=== PATIENT | male | born 1970 | race Caucasian/White ===

== ENCOUNTER 2016-11-01 12:23 | Emergency (ER) | payer OTHER ==
[2016-11-01] MEDS ORDERED: LIDOCAINE VISCOUS 2% 15 ML CUP MUCOUS MEM STA (13:49)
[2016-11-01] MEDS ORDERED: ACETAMINOPHEN ORAL SUSP 160 MG/5 ML CUP PO STA (13:49)
--- NOTE | 2016-11-01 13:55 | ED ---
ENT HPI - General Chief complaint: ENT Stated complaint: Throat Problems Time Seen by Provider: 11/01/16 13:39 Source: patient, RN notes reviewed Mode of arrival: ambulatory Limitations: no limitations - History of Present Illness Initial comments: Patient is a 45-year-old male presents to the emergency room for evaluation of throat pain. Patient states the pain began about 2 days ago. Patient states pain has been getting worse. Patient states he has been unable to swallow and has a hard time talking secondary to pain. Patient also states that he having a slight right ear pain. Patient denies headache, nausea or vomiting. Patient states he's had on and off chills. Patient denies taking any Tylenol or Motrin for her symptoms. Patient does state that he has slight nasal congestion. Patient denies cough or shortness of breath. Patient denies trouble urinating, pain or burning during urination or blood in urine. Patient denies diarrhea or constipation. - Related Data Previous Rx's Medication Instructions Recorded Azithromycin [Zithromax Z-pack] 250 mg PO DIRECTED #6 tab 11/01/16 predniSONE 50 mg PO DAILY 5 Days 11/01/16 Allergies Allergy/AdvReac Type Severity Reaction Status Date / Time Penicillins Allergy Rash/Hives Verified 11/01/16 13:34 Review of Systems ROS Statement: Those systems with pertinent positive or pertinent negative responses have been documented in the HPI. ROS Other: All systems not noted in ROS Statement are negative. Past Medical History Additional Past Medical History / Comment(s): "leg swelling" History of Any Multi-Drug Resistant Organisms: None Reported Additional Past Surgical History / Comment(s): "testicle surgery" Past Psychological History: No Psychological Hx Reported Smoking Status: Current every day smoker Past Alcohol Use History: Rare Past Drug Use History: Marijuana General Exam - General Exam Comments Initial Comments: Sitting in exam room, no acute distress. Limitations: no limitations General appearance: alert, in no apparent distress Head exam: Present: atraumatic, normocephalic, normal inspection Eye exam: Present: normal appearance Expanded Throat exam: tonsillar erythema, tonsillomegaly, tonsillar exudate. negative: normal inspection Neck exam: Present: normal inspection, tenderness (Bilateral anterior abdominal) , full ROM, lymphadenopathy (Bilateral anterior cervical lymphadenopathy) Respiratory exam: Present: normal lung sounds bilaterally. Absent: respiratory distress Cardiovascular Exam: Present: normal rhythm, tachycardia, normal heart sounds Extremities exam: Present: normal inspection Back exam: Present: normal inspection Neurological exam: Present: alert, oriented X3, CN II-XII intact, normal gait Psychiatric exam: Present: normal affect, normal mood Skin exam: Present: warm, dry, intact, normal color. Absent: rash Course Vital Signs 11/01/16 11/01/16 13:30 14:10 Temperature 101.3 F H 100.9 F H Pulse Rate 122 H 118 H Respiratory 20 22 Rate Blood Pressure 112/70 129/56 O2 Sat by Pulse 94 L 95 Oximetry Medical Decision Making - Medical Decision Making Patient is a 45-year-old male presented to the emergency room for evaluation of throat pain. Patient does have erythematous, bilateral, swollen tonsils with exudates. Will place patient on antibiotics and prednisone for symptoms. Patient was given Tylenol for fever. Advised patient to alternate Tylenol and Motrin for fever at home. Advised patient to follow-up with his primary care provider in 24-48 hours for reevaluation. Patient states he understands everything that was discussed with him. Return parameters discussed. Case discussed with Dr. Contreras. Disposition Clinical Impression: Tonsillitis Disposition: HOME SELF-CARE Condition: Good Instructions: Tonsillitis (ED) Additional Instructions: Take antibiotics as directed. Alternate Tylenol and Motrin every 3 hours for fever. Saltwater gargles. Please follow up with primary care provider in 1-2 days. If any new symptom arises or symptoms worsen, return to ER as soon as possible. Prescriptions: Azithromycin [Zithromax Z-pack] 250 mg PO DIRECTED #6 tab predniSONE 50 mg PO DAILY 5 Days Referrals: Aamir Singleton MD [Primary Care Provider] - 1-2 days Time of Disposition: 13:56
[2016-11-01 14:11] VITALS: BP 129/56; PULSE 118; RESP 22; TEMP 100.9
== END 2016-11-01 14:10 | disposition home or self-care (01) ==
LOC: EC 12:23
DX: J03.90 Acute tonsillitis, unspecified (principal); Z88.0 Allergy status to penicillin; F17.200 Nicotine dependence, unspecified, uncomplicated
CPT/HCPCS: 99282

== ENCOUNTER → 2018-01-05 | Outpatient (CLI) | payer OTHER ==
[2018-01-05 17:27] LABS: HCT 47.1 % (39.0-53.0); HGB 15.4 gm/dL (13.0-17.5); MCH 28.7 pg (25.0-35.0); MCHC 32.7 g/dL (31.0-37.0); MCV 87.7 fL (80.0-100.0); Mean Platelet Volume 7.6; Platelet Count 341 k/uL (150-450); RBC 5.37 m/uL (4.30-5.90); RDW 14.2 % (11.5-15.5); WBC 12.3 k/uL (3.8-10.6)
[2018-01-05 17:33] LABS: Potassium 3.8 mmol/L (3.5-5.1)
== END | disposition home or self-care (01) ==
LOC: LABPAT 16:52
PROVIDERS: ATTEND Orthopaedic Surgery
DX: Z01.818 Encounter for other preprocedural examination (principal); R00.0 Tachycardia, unspecified; S83.241A Other tear of medial meniscus, current injury, right knee, initial encounter; Z01.812 Encounter for preprocedural laboratory examination
CPT/HCPCS: 36415; 80051; 85027; 93005

== ENCOUNTER 2018-01-08 07:54 | Day surgery (SDC) | payer OTHER ==
[2018-01-02 15:58] VITALS: BMI 52.0
[~2018-01-08 07:54] MED LIST: DEXAMETHASONE SOD PHOSPHATE 10 MG/ML 1 ML VIAL IV ONE; LACTATED RINGERS 1,000 ML IV SCH; MORPHINE SULFATE 4 MG/ML SYRINGE IV PRN; ONDANSETRON 4 MG/2 ML VIAL IVP ONE; ceFAZolin IN SWFI 2 GM/20 ML SYRINGE IVP ONE
[2018-01-08] MEDS ORDERED: LIDOCAINE 1% 20 ML VIAL (10MG/ML) FOR IV START INTRADERMA ONE (08:43)
[2018-01-08] MEDS ORDERED: MIDAZOLAM 2 MG/2 ML VIAL ONE (09:41)
[2018-01-08] MEDS ORDERED: PROPOFOL 10 MG/ML 20 ML VIAL IV ONE (09:41)
[2018-01-08] MEDS ORDERED: fentaNYL (PF) 50 MCG/ML 2 ML AMP ONE (09:41)
[2018-01-08] MEDS ORDERED: LIDOCAINE 1% INJ 10MG/ML (20 ML MDV) ONE (09:41)
[2018-01-08] MEDS ORDERED: SUCCINYLCHOLINE CHLORIDE VIAL 200 MG/10 ML VIAL IV ONE (09:41)
[2018-01-08] MEDS ORDERED: LACTATED RINGERS 1,000 ML IV ONE (09:50)
[2018-01-08] MEDS ORDERED: BUPIVACAINE (PF) 0.25% 30 ML VIAL SQ ONE ×2 (10:08→10:20)
--- NOTE | 2018-01-08 10:26 | P.OP ---
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 compartment Synovitis Procedure(s) Performed: Arthroscopy of the right knee with partial medial meniscectomy (20% of the meniscus excised) Partial lateral meniscectomy(10% of meniscus excised) Chondroplasty of the medial femoral and patellofemoral compartments Partial synovectomy of the medial femoral, lateral femoral, and patellofemoral compartments Anesthesia: BHAVESH Surgeon: Robbin Michael Ward Helper #1: Lauren Chappell Estimated Blood Loss (ml): 5 Pathology: none sent Condition: stable Disposition: PACU Indications for Procedure: This is a 39-year-old gentleman who presented to me with pain in his right knee. An MRI demonstrated torn medial meniscus. After discussing the surgical and nonsurgical treatment options with him at length, wishes to proceed with arthroscopic debridement of his right knee and informed consent was obtained. Operative Findings: The operative findings are consistent with a torn medial meniscus and lateral meniscus of the right knee Description of Procedure: Patient was seen and evaluated in the preoperative area, the operative site was marked with a skin marker. The patient was then brought to the operating room and given 1 g of Ancef intravenously. A general anesthetic was administered by the anesthesia department. Tourniquet was placed on the left upper thigh and the left lower extremity was then prepped and draped in usual sterile fashion. A universal timeout was then performed confirming the patient's name, surgical site, ALLERGIES, and consent. The limb was then exsanguinated and tourniquet insufflated to 350 mmHg. Standard inferior medial and inferior lateral portals were established in the knee. The trochar was inserted in the inferolateral portal. Examination began at the patellofemoral joint. There is noted to be grade 2-3 chondral malacia the patellofemoral compartment and a moderate amount of synovitis. Next the medial compartment was visualized. There was a tear of the posterior horn of the medial meniscus. There was grade 3-4 chondral malacia the mediofemoral compartment and synovitis. The notch area was then visualized and ACL PCL were intact. The Lateral compartment was then visualized and the lateral meniscus was found to have a small tear of the posterior horn., there was no evidence of chondromalacia, but a mild amount of synovitis. Next, using an arthroscopic shaver and a biter, partial medial meniscectomy was performed stable margins. Approximately 20% of the meniscus was excised. A partial lateral meniscectomy was also performed stable margins. Approximately 10% of the meniscus was excised. A partial synovectomy is performed the medial femoral, lateral femoral, patellofemoral compartments. Chondroplasty was also performed of the medial femoral and patellofemoral compartments of the knee. Knee was then copiously irrigated, instruments removed, incisions were closed with 4-0 nylon. 30 mL of quarter percent plain Marcaine were injected sterilely into the surgical area. A sterile dressing was then applied, and the tourniquet was released. The wet process assistant head miller PAUL Rai was required due the complexity of the surgery and the patient's large size. Patient was then transferred to recovery room in stable condition.
[2018-01-08 10:37] VITALS: TEMP 97.7
[2018-01-08] MEDS ORDERED: HYDROcodone/APAP 10-325MG 1 EACH TAB PO ONE (11:35)
[2018-01-08 12:26] VITALS: RESP 18
[2018-01-08 13:53] VITALS: BP 138/87; PULSE 91
== END 2018-01-08 13:45 | disposition home or self-care (01) ==
LOC: OR 07:54
PROVIDERS: ATTEND Orthopaedic Surgery
DX: S83.241A Other tear of medial meniscus, current injury, right knee, initial encounter (principal); S83.281A Other tear of lateral meniscus, current injury, right knee, initial encounter; X58.XXXA Exposure to other specified factors, initial encounter; M22.41 Chondromalacia patellae, right knee; M17.11 Unilateral primary osteoarthritis, right knee; G43.909 Migraine, unspecified, not intractable, without status migrainosus; F17.210 Nicotine dependence, cigarettes, uncomplicated; E66.01 Morbid (severe) obesity due to excess calories; Z68.43 Body mass index [BMI] 50.0-59.9, adult; Z79.891 Long term (current) use of opiate analgesic; Z79.899 Other long term (current) drug therapy; Z88.0 Allergy status to penicillin; Z91.040 Latex allergy status
CPT/HCPCS: 29880; J2250; J0330; J1100; J2405; J2001; J3010; J2704; J0690

== ENCOUNTER → 2018-11-28 | Outpatient (CLI) | payer OTHER ==
--- NOTE | 2018-11-28 22:14 | CONS ---
CONSULTATION DATE OF SERVICE: 11/28/2018 47-year-old gentleman who has been evaluated in the sleep center for possible obstructive sleep apnea-hypopnea syndrome. HISTORY OF PRESENT ILLNESS/ SLEEP WAKE EVALUATION: The patient does not have a regular sleep schedule. He goes to bed at a different times when he feels sleepy. Usually sleeps from 2-5 hours. He has loud snoring and he may wake up from sleep up to 10 times with 2 episodes of nocturia. He does have problem with falling asleep. He is reading in bedroom. He sleeps in different positions, usually on the side, sometimes seeing vivid dreams when falling asleep. He also mentioned restless leg symptoms. In the morning, he wakes up tired, falling asleep during the day, has problem with the memory, depression. [place] Sleepiness Scale is 6. When he has taken naps, he sometimes also seeing vivid dreams. No history of sleep paralysis or cataplexy. PAST MEDICAL HISTORY: Positive for hypertension, bipolar, migraines. PAST SURGICAL HISTORY: Right knee arthroscopic surgery. MEDICATIONS: Bupropion, lisinopril Topamax, [place], Cyclobenzaprine. SOCIAL HISTORY: Positive for smoking about half pack a day more than 30 years. Alcohol consumption occasional. FAMILY HISTORY: Unavailable. The patient was adopted. REVIEW OF SYSTEMS: Multiple awakenings from sleep, sleepiness during the day. Swelling of the legs. PHYSICAL EXAM: gentleman without distress. BP 150/94, HR 95, RR 19, height 6 feet 4 inches, weight 513.8 pounds, body mass index 62.4. Temperature 98.8, oxygen saturation at room air 89%. Neck: Wide neck. 20.5 inches in circumference, Supple, no JVD. Thyroid is not palpable. Extremely low position of soft palate, slight restriction of nasal breathing. LUNGS: Clear to percussion and to auscultation. Good air exchange. No wheezing or rhonchi. HEART: S1, S2 regular. No murmurs, gallops, or rubs. ABDOMEN: Obese. Soft and nontender. Bowel sounds are present. No organomegaly appreciated. 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 Cranial nerves 2 to 7 intact. There is no fasciculation or atrophy. noted. No focal deficits observed. EXTREMITIES: 1+ bilateral ankle edema. During the day, patient wakes up tired. Falling asleep during the day, has problem with memory and depression. She was found to change level of CO2 by the blood work. IMPRESSION: 1. Snoring, multiple awakenings from sleep with nocturia, low position of soft palate, wide neck, obesity, obstructive sleep apnea-hypopnea syndrome. 2. Possible obesity hypoventilation syndrome. 3. Morbid obesity. 4. Body mass index 62.4. Weight 513.8 pounds. 5. Hypertension. 6. Bipolar. 7. History of migraine. 8. Status post right knee arthroscopic surgery. PLAN: 1. Polysomnography for evaluation of patient's breathing during sleep. 2. CPAP/BiPAP titration if sleep study confirms obstructive sleep apnea-hypopnea syndrome. 3. Preferable position during sleep on the side. 4. No driving if patient feels any sleepiness. 5. I will see patient for follow up visit to explain results of testing and following plan. Thank you very much for referring this patient for consultation. Sincerely, Trung Ang MD, PhD, FAASM Diplomat of [place] [employer] [place] [employer] Dental Assistant Teacher of [facility] [place] MMODL / IJN: [id number] /
== END | disposition home or self-care (01) ==
LOC: SLEEP 13:52
PROVIDERS: ATTEND Internal Medicine
DX: G47.33 Obstructive sleep apnea (adult) (pediatric) (principal); E66.01 Morbid (severe) obesity due to excess calories; I10 Essential (primary) hypertension; F31.9 Bipolar disorder, unspecified; G43.909 Migraine, unspecified, not intractable, without status migrainosus; F17.200 Nicotine dependence, unspecified, uncomplicated; Z68.44 Body mass index [BMI] 60.0-69.9, adult; Z96.651 Presence of right artificial knee joint; Z79.899 Other long term (current) drug therapy; Z79.891 Long term (current) use of opiate analgesic
CPT/HCPCS: 99211

== ENCOUNTER 2020-06-17 20:01 | Inpatient (IN) | payer MEDICARE, OTHER ==
[2020-06-17] MEDS ORDERED: SODIUM CHLORIDE 0.9% 500 ML 500 ML IV STA (20:04)
[2020-06-17] MEDS ORDERED: SODIUM CHLORIDE 0.9% 1,000 ML IV STA ×2 (20:04)
--- NOTE | 2020-06-17 20:07 | ED ---
Neuro HPI - General Stated Complaint: poss stroke Time Seen by Provider: 06/17/20 20:04 Source: RN notes reviewed, old records reviewed Mode of arrival: ambulatory Limitations: no limitations - History of Present Illness Is the patient presenting with stroke symptoms?: Yes -: hour(s) Initial Comments: This is a 49-year-old male DF for evaluation patient Dese for evaluation of strokelike symptoms right-sided weakness altered mental status. Patient states symptoms are significantly worse today does not follow primary care denies significant medical history patient has history of high blood pressure. No history of diabetes high cholesterol nonsmoker does admit alcohol use and does admit alcohol use today Location: speech, right arm History of same: No Place: home Severity: moderate Quality: weak, numb, tingling Improves With: time Worsens With: none On Anticoagulants: No Associated Symptoms: denies other symptoms Treatments Prior to Arrival: Aspirin - Related Data Home Medications: Home Medications Medication Instructions Recorded Confirmed HYDROcodone/APAP 10-325MG [[place] 1 tab PO QID 01/02/18 06/17/20 10-325] Allergies/Adverse Reactions: Allergies Allergy/AdvReac Type Severity Reaction Status Date / Time Latex, Natural Rubber Allergy RED SKIN Verified 06/17/20 22:03 Penicillins Allergy Rash/Hives Verified 06/17/20 22:03 Review of Systems ROS Statement: Those systems with pertinent positive or pertinent negative responses have been documented in the HPI. ROS Other: All systems not noted in ROS Statement are negative. General Exam General appearance: alert, in no apparent distress Head exam: Present: atraumatic, normocephalic, normal inspection Eye exam: Present: normal appearance, PERRL, EOMI. Absent: scleral icterus, conjunctival injection, periorbital swelling ENT exam: Present: normal exam, mucous membranes moist Neck exam: Present: normal inspection. Absent: tenderness, meningismus, lymphadenopathy Respiratory exam: Present: normal lung sounds bilaterally. Absent: respiratory distress, wheezes, rales, rhonchi, stridor Cardiovascular Exam: Present: regular rate, normal rhythm, normal heart sounds. Absent: systolic murmur, diastolic murmur, rubs, gallop, clicks GI/Abdominal exam: Present: soft, normal bowel sounds. Absent: distended, tenderness, guarding, rebound, rigid Extremities exam: Present: normal inspection, full ROM, normal capillary refill. Absent: tenderness, pedal edema, joint swelling, calf tenderness Back exam: Present: normal inspection Neurological exam: Present: alert, oriented X3, CN II-XII intact Psychiatric exam: Present: normal affect, normal mood Skin exam: Present: warm, dry, intact, normal color. Absent: rash Stroke MDM - Lab Data Result diagrams: 06/17/20 20:18 06/17/20 20:18 Lab Results 06/17/20 06/17/20 06/17/20 Range/Units 20:07 20:18 20:18 WBC 10.2 (3.8-10.6) k/uL RBC 5.26 (4.30-5.90) m/uL Hgb 15.9 (13.0-17.5) gm/dL Hct 51.1 (39.0-53.0) % MCV 97.2 (80.0-100.0) fL MCH 30.3 (25.0-35.0) pg MCHC 31.2 (31.0-37.0) g/dL RDW 16.5 H (11.5-15.5) % Plt Count 340 (150-450) k/uL Neutrophils % 63 % Lymphocytes % 24 % Monocytes % 6 % Eosinophils % 2 % Basophils % 1 % Neutrophils # 6.4 (1.3-7.7) k/uL Lymphocytes # 2.5 (1.0-4.8) k/uL Monocytes # 0.6 (0-1.0) k/uL Eosinophils # 0.2 (0-0.7) k/uL Basophils # 0.1 (0-0.2) k/uL Hypochromasia Slight Anisocytosis Slight Macrocytosis Slight PT 10.8 (9.0-12.0) sec INR 1.0 (<1.2) APTT 25.9 (22.0-30.0) sec Sodium (137-145) mmol/L Potassium (3.5-5.1) mmol/L Chloride (98-107) mmol/L Carbon Dioxide (22-30) mmol/L Anion Gap mmol/L BUN (9-20) mg/dL Creatinine (0.66-1.25) mg/dL Est GFR (CKD-EPI)AfAm (>60 ml/min/1.73 sqM) Est GFR (CKD-EPI)NonAf (>60 ml/min/1.73 sqM) Glucose (74-99) mg/dL POC Glucose (mg/dL) 116 H (75-99) mg/dL POC Glu Staff Design Engineer Ana Cristina Ernst A Calcium (8.4-10.2) mg/dL Total Bilirubin (0.2-1.3) mg/dL AST (17-59) U/L ALT (4-49) U/L Alkaline Phosphatase (38-126) U/L Creatine Kinase (55-170) U/L CK-MB (CK-2) (0.0-2.4) ng/mL Troponin I (0.000-0.034) ng/mL Total Protein (6.3-8.2) g/dL Albumin (3.5-5.0) g/dL Serum Alcohol mg/dL 06/17/20 06/17/20 Range/Units 20:18 20:18 WBC (3.8-10.6) k/uL RBC (4.30-5.90) m/uL Hgb (13.0-17.5) gm/dL Hct (39.0-53.0) % MCV (80.0-100.0) fL MCH (25.0-35.0) pg MCHC (31.0-37.0) g/dL RDW (11.5-15.5) % Plt Count (150-450) k/uL Neutrophils % % Lymphocytes % % Monocytes % % Eosinophils % % Basophils % % Neutrophils # (1.3-7.7) k/uL Lymphocytes # (1.0-4.8) k/uL Monocytes # (0-1.0) k/uL Eosinophils # (0-0.7) k/uL Basophils # (0-0.2) k/uL Hypochromasia Anisocytosis Macrocytosis PT (9.0-12.0) sec INR (<1.2) APTT (22.0-30.0) sec Sodium 134 L (137-145) mmol/L Potassium 4.2 (3.5-5.1) mmol/L Chloride 96 L (98-107) mmol/L Carbon Dioxide 30 (22-30) mmol/L Anion Gap 8 mmol/L BUN 12 (9-20) mg/dL Creatinine 0.79 (0.66-1.25) mg/dL Est GFR (CKD-EPI)AfAm >90 (>60 ml/min/1.73 sqM) Est GFR (CKD-EPI)NonAf >90 (>60 ml/min/1.73 sqM) Glucose 121 H (74-99) mg/dL POC Glucose (mg/dL) (75-99) mg/dL POC Glu Staff Design Engineer ID Calcium 8.9 (8.4-10.2) mg/dL Total Bilirubin 0.5 (0.2-1.3) mg/dL AST 73 H (17-59) U/L ALT 150 H (4-49) U/L Alkaline Phosphatase 78 (38-126) U/L Creatine Kinase 73 (55-170) U/L CK-MB (CK-2) 1.1 (0.0-2.4) ng/mL Troponin I <0.012 (0.000-0.034) ng/mL Total Protein 7.4 (6.3-8.2) g/dL Albumin 3.9 (3.5-5.0) g/dL Serum Alcohol 107 mg/dL - NIH Stroke Scale 1a. Level of Consciousness: (0) alert 1b. LOC Questions: (0) answers correctly 1c. LOC Commands: (0) performs tasks correctly 2. Best Gaze: (0) normal 3. Visual: (0) no visual loss 4. Facial Palsy: (0) normal symmetrical movement 5a. Motor Arm Left: (0) no drift 5b. Motor Arm Right: (2) some gravity effort 6a. Motor Leg Left: (0) no drift 6b. Motor Leg Right: (2) some gravity effort 7. Limb Ataxia: (1) present 1 limb 8. Sensory: (0) normal 9. Best Language: (1) mild/moderate aphasia 10. Dysarthria: (0) normal 11. Extinction/Inattention: (0) no abnormality - Thrombolytic Inclusion/Exclusion Thrombolytic Inclusion Criteria: Symptom Onset < 4.5 h - Medical Decision Making 49-year-old male ER for evaluation patient presents today for evaluation of strokelike symptoms COPD hypoxia - Radiology Data Radiology results: report reviewed (CT brain is negative for acute disease), image reviewed - EKG Data -: EKG Interpreted by Me (EKG is sinus rhythm of 91 IA 186 QRS 114 QTc 470) Past Medical History Past Medical History: Hypertension Additional Past Medical History / Comment(s): "leg swelling" History of Any Multi-Drug Resistant Organisms: None Reported Additional Past Surgical History / Comment(s): LT "testicle surgery" Past Anesthesia/Blood Transfusion Reactions: No Reported Reaction Past Psychological History: No Psychological Hx Reported Past Alcohol Use History: Rare Additional Past Alcohol Use History / Comment(s): SMOKES 1/2 PPD SINCE AGE [age] Past Drug Use History: Marijuana Additional Drug Use History / Comment(s): MARIJUANA USE ONCE A WEEK- INSTRUCTED TO REFRAIN FOR USE FOR AT LEAST 24 HOURS PRIOR TO PROCEDURE - Past Family History Mother Family Medical History: No Reported History Course Vital Signs 06/17/20 06/17/20 20:10 20:25 Temperature 98.5 F 98.2 F Pulse Rate 117 H 111 H Respiratory 18 17 Rate Blood Pressure 143/97 135/87 O2 Sat by Pulse 91 L 92 L Oximetry - Reevaluation(s) Reevaluation #1: 06/17/20 22:27 Medical record is reviewed Reevaluation #2: 06/17/20 22:28 Patient has no pain Reevaluation #3: 06/17/20 22:28 Patient's oxygen is improved with O2 breathing treatment Reevaluation #4: 06/17/20 22:28 Patient's neuro symptoms are significantly improved - Consultations Consultation #1: homer mayorga for admission Critical Care Time Critical Care Time: Yes Total Critical Care Time: 31 Disposition Clinical Impression: Cerebrovascular accident (CVA), Transient cerebral ischemia, Dehydration, Hypoxia, COPD (chronic obstructive pulmonary disease) Disposition: ADMITTED IP TO THIS HOSP Condition: Fair Is patient prescribed a controlled substance at d/c from ED?: No Referrals: Loki Bishop Jr, DO [Primary Care Provider] - 1-2 days
[2020-06-17 20:18] LABS: Glucose,Whole Blood 116 mg/dL (75-99)
[2020-06-17 20:29] LABS: Anisocytosis Slight; Basophils # (A) 0.1 k/uL (0-0.2); Basophils % (A) 1 %; Eosinophils # (A) 0.2 k/uL (0-0.7); Eosinophils % (A) 2 %; HCT 51.1 % (39.0-53.0); HGB 15.9 gm/dL (13.0-17.5); Hypochromasia Slight; Lymphocytes # (A) 2.5 k/uL (1.0-4.8); Lymphocytes % (A) 24 %; MCH 30.3 pg (25.0-35.0); MCHC 31.2 g/dL (31.0-37.0); MCV 97.2 fL (80.0-100.0); Macrocytosis Slight; Monocytes # (A) 0.6 k/uL (0-1.0); Monocytes % (A) 6 %; Neutrophils # (A) 6.4 k/uL (1.3-7.7); Neutrophils % (A) 63 %; Platelet Count 340 k/uL (150-450); RBC 5.26 m/uL (4.30-5.90); RDW 16.5 % (11.5-15.5); WBC 10.2 k/uL (3.8-10.6)
[2020-06-17 20:42] LABS: ALT 150 U/L (4-49); AST 73 U/L (17-59); African American GFR (CKD) >90 (>60 ml/min/1.73 sqM); Albumin 3.9 g/dL (3.5-5.0); Alkaline Phosphatase 78 U/L (38-126); Anion Gap 8 mmol/L; Blood Urea Nitrogen 12 mg/dL (9-20); Calcium 8.9 mg/dL (8.4-10.2); Carbon Dioxide 30 mmol/L (22-30); Chloride 96 mmol/L (98-107); Creatine Kinase 73 U/L (55-170); Glucose 121 mg/dL (74-99); Non-African American GFR(CKD) >90 (>60 ml/min/1.73 sqM); Potassium 4.2 mmol/L (3.5-5.1); Sodium 134 mmol/L (137-145); Total Bilirubin 0.5 mg/dL (0.2-1.3); Total Protein 7.4 g/dL (6.3-8.2)
[2020-06-17 20:44] LABS: Alcohol 107 mg/dL
[2020-06-17 20:48] LABS: Partial Thromboplastin Time 25.9 sec (22.0-30.0); Prothrombin Time 10.8 sec (9.0-12.0)
--- NOTE | 2020-06-17 20:50 | CT ---
EXAMINATION TYPE: CT brain wo con for TPA DATE OF EXAM: 06/17/2020 COMPARISON: None. HISTORY: neuro deficits. Pt habitus limited study CT DLP: 1251.6 mGycm. Automated Exposure Control for Dose Reduction was Utilized. TECHNIQUE: CT scan of the head is performed without contrast. FINDINGS: Suboptimal study due to large body habitus. There is no acute intracranial hemorrhage, mas s effect, or midline shift identified. The ventricles and sulci are within normal limits in size. Gr ay-white matter differentiation fairly well-maintained. The globes are intact and the visualized sin uses are clear. Nasal septum deviated to left of midline. IMPRESSION: No acute intracranial hemorrhage or midline shift is seen.
[2020-06-17 20:52] LABS: Creatine Kinase MB 1.1 ng/mL (0.0-2.4); Troponin I <0.012 ng/mL (0.000-0.034)
--- NOTE | 2020-06-17 21:31 | XR ---
EXAMINATION TYPE: XR chest 2V DATE OF EXAM: 06/17/2020 COMPARISON: NONE HISTORY: Altered mental status and weakness. TECHNIQUE: Frontal and lateral views of the chest are obtained. FINDINGS: Slightly suboptimal study due to patient's large body habitus. There is no focal air space opacity, pleural effusion, or pneumothorax seen. The cardiac silhouette size is upper limits of norm al. The osseous structures are intact. IMPRESSION: No acute cardiopulmonary process.
[2020-06-17] MEDS ORDERED: IPRATROPIUM 0.5 MG/2.5 ML NEBU INHALATION STA (22:22)
[2020-06-17] MEDS ORDERED: ALBUTEROL NEBULIZED 2.5 MG/3 ML INHALATION STA (22:22)
[2020-06-17] MEDS ORDERED: methylPREDNISolone SOD SUCCI 125 MG/2 ML VIAL IV STA (22:22)
[2020-06-17] MEDS: SODIUM CHLORIDE 0.9% 1,000 ML IV SCH (23:11)
[2020-06-17] MEDS ORDERED: MORPHINE SULFATE 4 MG/ML SYRINGE IVP PRN (23:12)
[2020-06-18 00:09] LABS: Glucose,Whole Blood 111 mg/dL (75-99)
--- NOTE | 2020-06-18 00:51 | US ---
EXAMINATION TYPE: US carotid duplex BILAT DATE OF EXAM: 06/17/2020 COMPARISON: CT CLINICAL HISTORY: Stenosis. Stenosis per order. Current smoker. EXAM MEASUREMENTS: RIGHT: Peak Systolic Velocity (PSV) cm/sec ----- Right CCA: 73.8 ----- Right ICA: 76.5 ----- Right ECA: 75.4 ICA/CCA ratio: 1.0 RIGHT: End Diastole cm/sec ----- Right CCA: 23.0 ----- Right ICA: 19.3 ----- Right ECA: 14.9 LEFT: Peak Systolic Velocity (PSV) cm/sec ----- Left CCA: 98.6 ----- Left ICA: 96.0 ----- Left ECA: 121.6 ICA/CCA ratio: 1.0 LEFT: End Diastole cm/sec ----- Left CCA: 30.8 ----- Left ICA: 17.7 ----- Left ECA: 11.8 VERTEBRALS (direction of flow): Right Vertebral: Antegrade Left Vertebral: Antegrade Rhythm: Minimal hyperechoic plaque seen within right carotid bulb. No elevated velocities seen at this time. No significant stenosis seen. -Hypoechoic area with hyperechoic center seen right neck measurin.5 x 1.3 x 0.8 cm. -Hypoechoic area with hyperechoic center seen left neck measurin.4 x 1.0 x 0.9 cm. IMPRESSION: There is antegrade flow in the vertebral arteries. Velocities are fairly normal. Minimal plaque formation. Images and measurements suggest less than 5% stenosis in both internal carotid art eries. Criteria for Assigning % of Stenosis / Diameter reduction (Estimation based on the indirect measurements of the internal carotid artery velocities (ICA PSV). 1. Normal (no stenosis)=ICA PSV < 125 cm/s: ratio < 2.0: ICA EDV<40 cm/s. 2. Less than 50% stenosis=ICA PSV < 125 cm/s: ratio < 2.0: ICA EDV<40 cm/s. 3. 50 to 69% stenosis=ICA PSV of 125 to 230 cm/s: ration 2.0 ? 4.0: ICA EDV 40-100 cm/s. 4. Greater than 70% stenosis to near occlusion= ICA PSV > 230 cm/s: ratio > 4.0: ICA EDV > 100 cm/s. 5. Near occlusion= ICA PSV velocities may be low or undetectable: variable ratio and ICA EDV. 6. Total occlusion=unable to detect flow.
[2020-06-18] MEDS: methylPREDNISolone SOD SUCCI 125 MG/2 ML VIAL IV SCH ×2 (01:08→06:38)
[2020-06-18 06:12] LABS: Cholesterol 123 mg/dL (<200); HDL Cholesterol 30 mg/dL (40-60); LDL Cholesterol,Calculated 76 mg/dL (0-99); Triglycerides 87 mg/dL (<150)
[2020-06-18] MEDS: IPRATROPIUM-ALBUTEROL 3 ML NEB INHALATION SCH ×4 (07:59→20:05)
[2020-06-18] MEDS: SODIUM CHLORIDE 0.9% 1,000 ML IV SCH (09:29)
--- NOTE | 2020-06-18 10:23 | ECHOF ---
Referral Reason:Thrombus MEASUREMENTS -------- HEIGHT: 188.0 cm WEIGHT: 267.6 kg BP: 146/87 RVIDd: 3.9 cm (< 3.3) IVSd: 1.3 cm (0.6 - 1.1) LVIDd: 5.5 cm (3.9 - 5.3) LVPWd: 1.9 cm (0.6 - 1.1) IVSs: 2.1 cm LVIDs: 1.5 cm LVPWs: 2.3 cm Ao Diam: 3.5 cm (2.0 - 3.7) AV Cusp: 2.5 cm (1.5 - 2.6) LA Diam: 3.7 cm (2.7 - 3.8) MV EXCURSION: 24.252 mm (> 18.000) MV EF SLOPE: 85 mm/s (70 - 150) EPSS: 1.9 cm MV E Lex: 0.72 m/s MV DecT: 221 ms MV A Lex: 0.29 m/s MV E/A Ratio: 2.47 RAP: 5.00 mmHg RVSP: 12.04 mmHg FINDINGS -------- This was a technically difficult study with suboptimal views. Morbid Obesity The left ventricular size is normal. There is moderate concentric left ventricular hypertrophy. O verall left ventricular systolic function is normal with, an EF between 55 - 60 %. The right ventricle is mild to moderately enlarged. The left atrial size is normal. The right atrial size is normal. Lumason used The aortic valve was not well visualized. The mitral valve was not well visualized. There is trace mitral regurgitation. The tricuspid valve was not well visualized. Trace tricuspid regurgitation present. Right ventric ular systolic pressure is normal at < 35 mmHg. The pulmonic valve was not well visualized. The aortic root size is normal. There is no pericardial effusion. CONCLUSIONS -------- 1. The left ventricular size is normal. 2. There is moderate concentric left ventricular hypertrophy. 3. Overall left ventricular systolic function is normal with, an EF between 55 - 60 %. 4. The right ventricle is mild to moderately enlarged. 5. There is trace mitral regurgitation. 6. Trace tricuspid regurgitation present. 7. There is no pericardial effusion. BOTTLE BLOWING MACHINE TENDER: Martha Rose RDCS
[2020-06-18] MEDS ORDERED: HYDROcodone/APAP 10-325MG 1 EACH TAB PO SCH (13:00)
--- NOTE | 2020-06-18 13:46 | P.HPIM ---
History of Present Illness H&P Date: 06/18/20 Chief Complaint: Right-sided weakness, mental status changes This is a 49-year-old gentleman with past medical history of hypertension, ROCHELLE, hypertension, obesity, depression ongoing nicotine dependence, marijuana use, and multiple other medical issues presented to the ER with complaints of right- sided weakness, altered mental status, and shortness of breath. ER reported patient cyanotic on arrival. On admission, patient afebrile, normal WBC, tachypneic with respiratory rate in the mid 20s, maintaining O2 sats in the low 90s on 2 L nasal cannula. Currently on 4 L nasal cannula maintaining O2 sats between 82 and 88%. Patient reports he has a CPAP machine but not compliant with wearing it. Alcohol level 107- Reports he drinks a 12 pack of beer daily. Currently right-sided weakness has resolved with the exception of some numbness in his last 2 digits of his right hand. Hematology unremarkable, INR 1, sodium 134, potassium 4.2, carbon dioxide 30, BUN 12, creatinine 0.79, AST 73, ALT 150. Troponin negative 1. EKG reported normal sinus rhythm, incomplete right bundle branch block, T-wave abnormality. Denies chest pain, palpitations. Brain CT reported no acute intracranial hemorrhage or midline shift. Chest x- ray reported no acute cardiopulmonary process. Carotid Doppler reported hypoechoic area of the right and left neck measuring 1.5 x 1.3 x 0.8 cm and 1.4 x 1 x 0.9 cm, no significant stenosis. Echo suboptimal reported normal LV function, EF 55-60%, moderate concentric ventricular hypertrophy, right ventricle mild to moderately enlarged. Review of Systems ROS Statement: Those systems with pertinent positive or pertinent negative responses have been documented in the HPI. ROS Other: All systems not noted in ROS Statement are negative. Past Medical History Past Medical History: Hypertension Additional Past Medical History / Comment(s): ROCHELLE (AHI of 49), HTN, bipolar disease, Obesity, depression History of Any Multi-Drug Resistant Organisms: None Reported Additional Past Surgical History / Comment(s): LT "testicle surgery" Past Anesthesia/Blood Transfusion Reactions: No Reported Reaction Past Psychological History: No Psychological Hx Reported Smoking Status: Current every day smoker Past Alcohol Use History: Rare Additional Past Alcohol Use History / Comment(s): SMOKES 1/2 PPD SINCE AGE [age] Past Drug Use History: Marijuana Additional Drug Use History / Comment(s): MARIJUANA USE ONCE A WEEK- INSTRUCTED TO REFRAIN FOR USE FOR AT LEAST 24 HOURS PRIOR TO PROCEDURE - Past Family History Mother Family Medical History: No Reported History Medications and Allergies Home Medications Medication Instructions Recorded Confirmed Type HYDROcodone/APAP 10-325MG [[place] 1 tab PO QID 01/02/18 06/17/20 History 10-325] Allergies Allergy/AdvReac Type Severity Reaction Status Date / Time Latex, Natural Rubber Allergy RED SKIN Verified 06/17/20 22:03 Penicillins Allergy Rash/Hives Verified 06/17/20 22:03 Physical Exam Vitals: Vital Signs Temp Pulse Pulse Resp BP Pulse Ox 06/18/20 08:13 100 06/18/20 08:03 94 06/18/20 08:00 97.8 F 93 90 20 148/88 92 L 06/18/20 06:00 95 22 146/87 94 L 06/18/20 05:25 97.6 F 91 18 146/87 90 L 06/18/20 04:00 90 25 H 06/18/20 03:25 98.2 F 88 25 H 92 L 06/18/20 01:25 98.0 F 90 25 H 90 L 06/18/20 00:25 98.1 F 93 20 138/96 92 L 06/18/20 00:10 98.1 F 23 06/17/20 23:57 90 18 06/17/20 23:40 99 18 06/17/20 22:49 91 22 123/85 94 L 06/17/20 20:25 98.2 F 111 H 17 135/87 92 L 06/17/20 20:10 98.5 F 117 H 18 143/97 91 L Intake and Output 06/17/20 06/18/20 06/18/20 22:59 06:59 14:59 Other: Voiding Method Toilet Urinal # Voids 5 Weight 265.352 kg 267.97 kg 260 kg PHYSICAL EXAM: VITAL SIGNS: As above GENERAL: Sitting up in bed, no acute distress HEENT: Conjunctivae normal. eyes normal. Poor dentition. Oral mucosa moist NECK: Unable to assess JVD, short neck. No thyroid enlargement. No LNs CARDIOVASCULAR: S1, S2 regular.No murmur RESPIRATION: Breath sounds diminished in the bases. No rhonchi or crackles. No bronchial breathing. ABDOMEN: Soft, obese, nontender . No guarding. no masses palpable. Bowel sounds heard. LEGS: Positive edema, bilateral calves Nontender PSYCHIATRY: Alert and oriented X3, mood and affect normal. NERVOUS SYSTEM: Cranial N 2-12 grossly normal. Moves all 4 limbs. No focal deficits. Strength and sensation grossly intact.. Skin: no lesions, no rash Results CBC & Chem 7: 06/17/20 20:18 06/17/20 20:18 Labs: Abnormal Lab Results - Last 24 Hours (Table) 06/17/20 06/17/20 06/17/20 Range/Units 20:07 20:18 20:18 RDW 16.5 H (11.5-15.5) % Sodium 134 L (137-145) mmol/L Chloride 96 L (98-107) mmol/L Glucose 121 H (74-99) mg/dL POC Glucose (mg/dL) 116 H (75-99) mg/dL AST 73 H (17-59) U/L ALT 150 H (4-49) U/L HDL Cholesterol (40-60) mg/dL 06/18/20 06/18/20 Range/Units 00:07 04:50 RDW (11.5-15.5) % Sodium (137-145) mmol/L Chloride (98-107) mmol/L Glucose (74-99) mg/dL POC Glucose (mg/dL) 111 H (75-99) mg/dL AST (17-59) U/L ALT (4-49) U/L HDL Cholesterol 30 L (40-60) mg/dL Thrombosis Risk Factor Assmnt - Choose All That Apply Each Factor Represents 1 point: Age 41-60 years, Swollen legs (current) Other Risk Factors: No Each Risk Factor Represents 5 Points: Stroke (< 1 month) Thrombosis Risk Factor Assessment Total Risk Factor Score: 7 Thrombosis Risk Factor Assessment Level: High Risk Assessment and Plan Assessment: Acute right-sided weakness with altered mental status, etiology unclear, possible TIA, possibly related to acute hypoxic respiratory failure, alcohol abuse. Denies recreational drugs, positive for nicotine and marijuana use. Possible obesity hypoventilation syndrome Acute hypoxic respiratory failure ROCHELLE, noncompliant with wearing his CPAP Anxiety Morbid obesity, BMI 69.8 Plan: Continue on current medication regime ,monitoring and symptomatic treatment. Drug screen ordered. Neurology consult in place, recommendations pending. Weight loss, Smoking and EtOH sensation reinforced. Discharge planning in progress for potentially later today or in a.m. pending pulmonary and neurology clearance. The impression and plan of care has been dictated as directed. : I performed a history and examination of this patient, discussed the same with the dictator. I agree with the dictator's note ,documented as a scribe. Any additional findings or plans will be noted.
[2020-06-18 14:27] LABS: Amphetamine Screen,Urine Not Detected (NotDetected); Barbiturate Screen,Urine Not Detected (NotDetected); Benzodiazepines Screen,Urine Not Detected (NotDetected); Cocaine Screen,Urine Not Detected (NotDetected); Methadone Screen, Urine Not Detected (NotDetected); Opiate Screen,Urine Detected (NotDetected); Oxycodone Screen, Urine Not Detected (NotDetected); Phencyclidine Screen,Urine Not Detected (NotDetected); Tricyclic Antidepressant,Urine Not Detected (NotDetected); Urn Cannabinoid Scrn Detected (NotDetected)
--- NOTE | 2020-06-18 15:00 | P.CNPUL ---
History of Present Illness Consult date: 06/18/20 Reason for consult: COPD History of present illness: This is a 49-year-old male patient, morbidly obese with known history of obstructive sleep apnea who has been nontolerant to CPAP therapy in addition to chronic obesity hypoventilation syndrome was titrated in the past a BiPAP pressure 15/10 cm of water for an AHI of 50. Nevertheless, the patient was nontolerant to treatment. He is a chronic smoker. He is alcohol drinker. He has hypertension and he has history of depression he smokes marijuana. The patient came into the emergency department yesterday because of some altered mentation right-sided weakness. In the ED, the patient was found to be hypoxic and cyanotic on arrival. On admission, he was afebrile and he is pulse ox was initially in the order of 82-88%. He was placed on 2 L of oxygen by nasal cannula and subsequently was brought up to 4 L and then 6 L. His current pulse is up to 92%. His alcohol level was positive at 17. He drinks 12 pack beer on a daily basis. . Note that the patient's was also complaining of some numbness and weakness in his right side mainly in his right upper extremity. Initial CAT scan of the brain showed no acute intracranial abnormalities. Exact timing of the weakness was not clearly established. I think this was of an acute onset. Nevertheless, the the stroke team was not activated. Carotid Dopplers were done and no significant stenosis were identified. Echo was done and the patient is an ejection fraction of 55-60% and the patient is a moderate concentric LVH and RV was mild to moderately dilated. Rest of the blood work was all within normal limits. Serum bicarbs at 30 consistent with chronic hypercapnic respiratory failure and secondary metabolic alkalosis. EKG showed a sinus rhythm with an incomplete right bundle branch block and T-wave abnormalities. The patient had a chest x-ray that showed some cardiomegaly. No other acute abnormalities was noted. He is still complaining of some weakness in the fourth and the fasting in his right hand. Otherwise there is no significant right-sided weakness. No facial asymmetry. Mental status appropriate for now. His urine drug screen is positive for marijuana as expected and opiates. His LDL cholesterol is at 76. Rest of the blood work shows an AST of 73, ALT of 150, troponins are negative, and his sodium level is at 134. Coagulation profile is within normal limits. Based on previous records, the patient's chronic hypoxic and his baseline pulse ox is 88-89% on room air oxygen. Review of Systems Constitutional: Reports chronic headaches, Reports daytime sleepiness, Reports fatigue, Reports weight gain Eyes: denies as per HPI, denies blurred vision, denies bulging eye, denies decreased vision, denies diplopia, denies discharge, denies dry eye, denies irritation, denies itching, denies pain, denies photophobia, denies loss of peripheral vision, denies loss of vision, denies tunnel vision/blind spots Ears: deny: decreased hearing, ear discharge, earache, tinnitus Ears, nose, mouth and throat: Reports as per HPI Breasts: absent: as per HPI, gynecomastia Cardiovascular: Reports decreased exercise tolerance Respiratory: Reports dyspnea Gastrointestinal: Reports as per HPI Genitourinary: Reports decreased libido, Reports erectile dysfunction Musculoskeletal: Reports as per HPI, Reports gait dysfunction, Reports limita tion of motion Musculoskeletal: bilateral: ankle swelling, absent: ankle pain, ankle stiffness Integumentary: Reports as per HPI Neurological: Reports change in mentation Psychiatric: Reports as per HPI Endocrine: Reports as per HPI, Reports fatigue Hematologic/Lymphatic: Reports as per HPI Allergic/Immunologic: Reports as per HPI Past Medical History Past Medical History: Hypertension Additional Past Medical History / Comment(s): ROCHELLE (AHI of 49), HTN, bipolar disease, Obesity, depression History of Any Multi-Drug Resistant Organisms: None Reported Additional Past Surgical History / Comment(s): LT "testicle surgery" Past Anesthesia/Blood Transfusion Reactions: No Reported Reaction Past Psychological History: No Psychological Hx Reported Smoking Status: Current every day smoker Past Alcohol Use History: Rare Additional Past Alcohol Use History / Comment(s): SMOKES 1/2 PPD SINCE AGE 2016 Past Drug Use History: Marijuana Additional Drug Use History / Comment(s): MARIJUANA USE ONCE A WEEK- INSTRUCTED TO REFRAIN FOR USE FOR AT LEAST 24 HOURS PRIOR TO PROCEDURE - Past Family History Mother Family Medical History: No Reported History Medications and Allergies Home Medications Medication Instructions Recorded Confirmed Type HYDROcodone/APAP 10-325MG [[place] 1 tab PO QID 01/02/18 06/17/20 History 10-325] Allergies Allergy/AdvReac Type Severity Reaction Status Date / Time Latex, Natural Rubber Allergy RED SKIN Verified 06/17/20 22:03 Penicillins Allergy Rash/Hives Verified 06/17/20 22:03 Physical Exam Vitals: Vital Signs Temp Pulse Pulse Resp BP Pulse Ox 06/18/20 08:13 100 06/18/20 08:03 94 06/18/20 08:00 97.8 F 93 90 20 148/88 92 L 06/18/20 06:00 95 22 146/87 94 L 06/18/20 05:25 97.6 F 91 18 146/87 90 L 06/18/20 04:00 90 25 H 06/18/20 03:25 98.2 F 88 25 H 92 L 06/18/20 01:25 98.0 F 90 25 H 90 L 06/18/20 00:25 98.1 F 93 20 138/96 92 L 06/18/20 00:10 98.1 F 23 06/17/20 23:57 90 18 06/17/20 23:40 99 18 06/17/20 22:49 91 22 123/85 94 L 06/17/20 20:25 98.2 F 111 H 17 135/87 92 L 06/17/20 20:10 98.5 F 117 H 18 143/97 91 L Intake and Output 06/17/20 06/18/20 06/18/20 22:59 06:59 14:59 Other: Voiding Method Toilet Urinal # Voids 5 Weight 265.352 kg 267.97 kg 260 kg Gen. appearance obese, comfortable nonacute distress, comfortable and appropriate and the patient's BMI 69.8 Head exam was generally normal. There was no scleral icterus or corneal arcus. Mucous membranes were moist. Neck was supple and without jugular venous distension, thyromegaly, or carotid bruits. Carotids were easily palpable bilaterally. There was no adenopathy. Mallampati class IV with significant crowding of the posterior oropharynx lung sounds are diminished bilaterally otherwise there is no significant wheezes or rhonchi or any crackles Cardiac exam revealed the PMI to be normally situated and sized. The rhythm was regular and no extrasystoles were noted during several minutes of auscultation. The first and second heart sounds were normal and physiologic splitting of the second heart sound was noted. There were no murmurs, rubs, clicks, or gallops. abdomen is super obese and the patient's organs cannot be palpated. No direct evidence rebound tenderness or guarding. Examination of the extremities revealed easily palpable radial, femoral and pedal pulses. There was no cyanosis, clubbing and the patient has +1-2 pitting edema no function in his most on the lower extremities bilaterally. Neurologically, the patient is awake and alert and the patient does not have any focal neurological deficit. Cranial nerves are essentially intact. Examination of the skin revealed no evidence of significant rashes, suspicious appearing nevi or other concerning lesions. Results - Laboratory Findings CBC and BMP: 06/17/20 20:18 06/17/20 20:18 PT/INR, D-dimer PT 10.8 sec (9.0-12.0) 06/17/20 20:18 INR 1.0 (<1.2) 06/17/20 20:18 Abnormal lab findings: Abnormal Labs 06/17/20 06/17/20 06/17/20 20:07 20:18 20:18 RDW 16.5 H Sodium 134 L Chloride 96 L Glucose 121 H POC Glucose (mg/dL) 116 H AST 73 H ALT 150 H HDL Cholesterol 06/18/20 06/18/20 00:07 04:50 RDW Sodium Chloride Glucose POC Glucose (mg/dL) 111 H AST ALT HDL Cholesterol 30 L - Diagnostic Findings Chest x-ray: image reviewed Assessment and Plan Plan: 1 acute right-sided weakness, recovered. Exact etiology is not clear. The patient was alcohol intoxicated at the time of the admission, and addition to urine drug screen that was positive for marijuana and opiates. CAT scan of the brain was negative. Carotid Dopplers were negative. Motor weakness is covered with the patient has some residual numbness in his fourth and the testing on the right. No facial asymmetry. No focal neurological deficit. 2 severe obstructive sleep apnea with an AHI of 50, nontolerant to BiPAP therapy. 3 chronic hypoxic respiratory failure 4 obesity hypoventilation syndrome and suspected chronic hypercapnic respiratory failure with secondary metabolic alkalosis 5 chronic alcoholism and the patient drinks 12 pack beers on a daily basis 6 chronic smoker both tobacco and marijuana 7 chronic lower extremity edema 8 hypertension 9 bipolar disease Plan The patient on Plavix 75 mg by mouth daily Consult with neurology regarding the possibility of TIA/CVA Diuretics was suggested the patient and he declined based on his refusal to go to the bathroom frequently to urinate Will reevaluate his need for CPAP/BiPAP therapy on outpatient basis the patient can be chest out of the intensive care unit today. Continue to follow.
--- NOTE | 2020-06-18 16:19 | P.CNNES ---
History of Present Illness Consult date: 06/18/20 Requesting physician: Rene Garland Reason for Consult: CVA History of Present Illness: Patient is a 49-year-old male arrived to the hospital yesterday for strokelike symptoms with right-sided weakness and slurred speech and altered mental status. Patient states that yesterday shortly before he arrived to the hospital, he was watching TV, when he lost motor control of the right arm, droopy face and slurred speech. No weakness of the right leg. Patient arrived to the hospital at 8 PM. Patient's vital signs on arrival was blood pressure 149/101, pulse rate 90 temperature 98.8 and saturation documented [address] head showed no acute intracranial hemorrhage or midline shift. Chest x-ray showed no acute cardiopulmonary process. EKG with normal sinus rhythm. Possible left atrial enlargement. Incomplete right bundle branch block. Carotid Doppler showed antegrade flow in vertebral arteries. Velocities are fairly normal. Minimal plaque formation. 2-D echo showed normal left-ventricular size. Moderate concentric LVH. EF is 55-60%. Right ventricle is mild to moderately enlarged. Patient's blood test shows normal CBC, with borderline MCV 97.2. PT/PTT normal. Sodium 134, renal functions normal. AST is 73, ALT 150. Total cholesterol is 123, LDL 76, HDL 30 and triglycerides 87. Blood alcohol level is elevated 107. Urine drug screen positive for opiates and marijuana. Patient was noted to have altered mental status in the ER, with decreased O2 saturation due to worsening COPD. He was intoxicated. As per ED staff, patient was not given TPA because of intoxication, clinical improvement noted in the ER with normal speech, normal gait. Patient was seen today in the ICU. Patient states his speech problem has resolved. Continues to have some weakness of the right arm although has improved. Denies any problem with the leg or gait. Patient has been seen by pulmonology, diagnosed with severe obstructive sleep apnea, obesity hypoventilation syndrome. Patient apparently does not take any antiplatelet medication at home. He states that he has been drinking heavily for the last couple months. He would drink 6- 12 pack of beer every day. He also has smoked 1 pack per day since he was age 11, quit 4-5 years ago. Patient denies any previous history of stroke. Review of Systems As per HPI detail. He has some shortness of breath. Denies chest pain. Denies loss of vision double vision, denies dysphagia. Denies headache, recent trauma. Patient has peripheral edema. All other review of systems unremarkable. Past Medical History Past Medical History: Hypertension Additional Past Medical History / Comment(s): ROCHELLE (AHI of 50), HTN, bipolar disease, Obesity, depression History of Any Multi-Drug Resistant Organisms: None Reported Additional Past Surgical History / Comment(s): LT "testicle surgery" Past Anesthesia/Blood Transfusion Reactions: No Reported Reaction Past Psychological History: No Psychological Hx Reported Smoking Status: Current every day smoker Past Alcohol Use History: Rare Additional Past Alcohol Use History / Comment(s): SMOKES 1/2 PPD SINCE AGE [age] Past Drug Use History: Marijuana Additional Drug Use History / Comment(s): MARIJUANA USE ONCE A WEEK- INSTRUCTED TO REFRAIN FOR USE FOR AT LEAST 24 HOURS PRIOR TO PROCEDURE - Past Family History Mother Family Medical History: No Reported History Medications and Allergies Home Medications Medication Instructions Recorded Confirmed Type HYDROcodone/APAP 10-325MG [[place] 1 tab PO QID 01/02/18 06/17/20 History 10-325] Allergies Allergy/AdvReac Type Severity Reaction Status Date / Time Latex, Natural Rubber Allergy RED SKIN Verified 06/17/20 22:03 Penicillins Allergy Rash/Hives Verified 06/17/20 22:03 Physical Examination - Vital Signs Vital Signs: Vital Signs Temp Pulse Pulse Resp BP Pulse Ox 06/18/20 11:53 89 06/18/20 11:42 91 90 06/18/20 10:45 20 92 L 06/18/20 10:30 22 85 L 06/18/20 08:13 100 06/18/20 08:03 94 06/18/20 08:00 97.8 F 93 90 20 148/88 92 L 06/18/20 06:00 95 22 146/87 94 L 06/18/20 05:25 97.6 F 91 18 146/87 90 L 06/18/20 04:00 90 25 H 06/18/20 03:25 98.2 F 88 25 H 92 L 06/18/20 01:25 98.0 F 90 25 H 90 L 06/18/20 00:25 98.1 F 93 20 138/96 92 L 06/18/20 00:10 98.1 F 23 06/17/20 23:57 90 18 06/17/20 23:40 99 18 06/17/20 22:49 91 22 123/85 94 L 06/17/20 20:25 98.2 F 111 H 17 135/87 92 L 06/17/20 20:10 98.5 F 117 H 18 143/97 91 L Intake and Output 06/17/20 06/18/20 06/18/20 22:59 06:59 14:59 Other: Voiding Method Toilet Urinal # Voids 5 Weight 265.352 kg 267.97 kg 260 kg On examination patient is a middle aged male, morbidly obese, in no acute distress. He is alert and awake. Speech and language functions are completely normal. No aphasia or dysarthria. On cranial nerve examination pupils are round and reactive to light, visual walton are full on confrontation, extraocular muscles are intact with no nystagmus. Patient has mild flattening of the right nasolabial fold although appears normal on active testing. Tongue protrudes the midline. Palatal elevation sensation hearing and shoulder shrug normal. On muscle strength testing patient has right pronator drift. The strength is normal and the deltoid biceps and triceps. [employer] And [employer] Coach is 5-on the right as compared to left. Strength is normal in the legs. Reflexes are diminished and plantars are downgoing. Sensory touch is equal with no neglect on double simultaneous stimulation. Patient is ataxic for [id number] testing on the right. Patient's fine motor dexterity slightly decreased on the right side. Tone and bulk of muscles normal. Patient was able to get up from the bed, walked to the bathroom to pass urine and appeared very steady. No obvious bruit, S1 and S2 audible. Patient has moderate peripheral edema. Peripheral pulses could not be felt. Abdomen soft nontender. Results - Laboratory Findings CBC and BMP: 06/17/20 20:18 06/17/20 20:18 Abnormal Lab Findings: Abnormal Labs 06/17/20 06/17/20 06/17/20 20:07 20:18 20:18 RDW 16.5 H Sodium 134 L Chloride 96 L Glucose 121 H POC Glucose (mg/dL) 116 H AST 73 H ALT 150 H HDL Cholesterol 06/18/20 06/18/20 00:07 04:50 RDW Sodium Chloride Glucose POC Glucose (mg/dL) 111 H AST ALT HDL Cholesterol 30 L Assessment and Plan Assessment: * Acute ischemic CVA, with mild monoparesis involving right upper extremity. Mechanism likely from small vessel disease, although embolic process also in the differential. * Hypertension * Morbid obesity * Alcoholism with acute alcohol intoxication * X tobacco use * Dyslipidemia Plan: * Patient will placed on dual antiplatelet medications for 3-4 weeks, then to be maintained on single antiplatelet agent with aspirin 325 mg OR Plavix 75 mg daily. * Pepcid for gastric ulcer prophylaxis. * Aggressive control of stroke risk factors. * Patient's 2-D echo and carotid Doppler showed no embolic source. * Continue statins. * Check hemoglobin A1c. * Permissible hypertension for 24-48 hours. * PT OT for right upper extremity weakness. * Pulmonary on the case for underlying ROCHELLE and COPD. * Patient not able to fit MRI scanner because of obesity. * Recommend abstinence from alcohol.
[2020-06-18] MEDS: CLOPIDOGREL 75 MG TAB PO SCH (16:46)
[2020-06-18] MEDS: HYDROcodone/APAP 10-325MG 1 EACH TAB PO PRN ×2 (16:46→21:44)
[2020-06-18] MEDS: ASPIRIN 325 MG TAB PO SCH (16:46)
[2020-06-18] MEDS ORDERED: ATORVASTATIN 80 MG TAB PO SCH (21:00)
[2020-06-18] MEDS: FAMOTIDINE 20 MG TAB PO SCH (21:03)
[2020-06-19 05:50] LABS: Hemoglobin A1C 6.6 % (4.0-6.0)
[2020-06-19] MEDS: IPRATROPIUM-ALBUTEROL 3 ML NEB INHALATION SCH ×2 (08:06→12:36)
[2020-06-19] MEDS: CLOPIDOGREL 75 MG TAB PO SCH (09:47)
[2020-06-19] MEDS: ASPIRIN 325 MG TAB PO SCH (09:47)
[2020-06-19] MEDS: FAMOTIDINE 20 MG TAB PO SCH (09:47)
[2020-06-19] MEDS: HYDROcodone/APAP 10-325MG 1 EACH TAB PO PRN (09:54)
[2020-06-19 12:19] VITALS: BP 141/82; RESP 18; TEMP 98.2
--- NOTE | 2020-06-19 12:19 | P.PN ---
Subjective Progress Note Date: 06/19/20 Patient is doing much better. Right arm dexterity and strength has improved. Less ataxia. No new focal symptoms. Objective - Vital Signs Vital signs: Vital Signs Temp 98.1 F 06/19/20 08:00 Pulse 76 06/19/20 08:18 Resp 16 06/19/20 08:00 BP 159/84 06/19/20 08:00 Pulse Ox 94 L 06/19/20 08:06 Intake & Output 06/18/20 06/19/20 06/19/20 18:59 06:59 18:59 Intake Total 500 400 Output Total 600 Balance -600 500 400 Weight 260 kg 261 kg Intake: Oral 500 400 Output: Urine 600 Other: Voiding Method Toilet Toilet Toilet Urinal Urinal Urinal # Voids 2 1 - Exam Patient was sleeping when I arrived. He did wake up and was appropriate. He appears slightly tremulous. Speech and language functions are normal. No aphasia or dysarthria. Pupils are round and reacting, visual walton are full. Extraocular muscles are intact. Patient has mild right pronator drift, better than yesterday. The strength is completely normal in the arms and legs. Patient has much less ataxia for [id number] on the right. Sensations are equal with no neglect. Gait deferred. - Labs CBC & Chem 7: 06/17/20 20:18 06/17/20 20:18 Labs: Abnormal Lab Results - Last 24 Hours (Table) 06/17/20 06/18/20 Range/Units 20:18 13:00 Hemoglobin A1c 6.6 H (4.0-6.0) % Urine Opiates Screen Detected H (NotDetected) U Marijuana (THC) Screen Detected H (NotDetected) Assessment and Plan Assessment: * Acute ischemic CVA, with mild monoparesis involving right upper extremity. Mechanism likely from small vessel disease, although embolic process also in the differential. * Hypertension * Morbid obesity * Alcoholism with acute alcohol intoxication * X tobacco use * Dyslipidemia Plan: * Continue dual antiplatelet medications for 4 weeks, then to be maintained on single antiplatelet agent with aspirin 325 mg OR Plavix 75 mg daily. * Pepcid for gastric ulcer prophylaxis. * Aggressive control of stroke risk factors. * Patient's 2-D echo and carotid Doppler showed no embolic source. * Hemoglobin A1c 6.6, controlled. Lipid panel with cholesterol 123, LDL 76, HDL 30 and triglycerides 87. Continue statins. * Watch for alcohol withdrawal. * PT OT for right upper extremity weakness. * Pulmonary on the case for underlying ROCHELLE and COPD. * Recommend abstinence from alcohol. * Neurologically clear for discharge, if medically cleared. * Follow up with neurology outpatient in 3-4 weeks.
[2020-06-19 12:48] VITALS: PULSE 84
--- NOTE | 2020-06-19 13:09 | P.PN ---
Subjective Progress Note Date: 06/19/20 Principal diagnosis: Acute right-sided weakness, recovered, of unclear etiology, severe obstructive sleep apnea with AHI of 50 non-tolerance to BiPAP, chronic hypoxic respiratory f ailure This is a 49-year-old male patient, morbidly obese with known history of obstructive sleep apnea who has been nontolerant to CPAP therapy in addition to chronic obesity hypoventilation syndrome was titrated in the past a BiPAP pressure 15/10 cm of water for an AHI of 50. Nevertheless, the patient was nontolerant to treatment. He is a chronic smoker. He is alcohol drinker. He has hypertension and he has history of depression he smokes marijuana. The patient came into the emergency department yesterday because of some altered mentation right-sided weakness. In the ED, the patient was found to be hypoxic and cyanotic on arrival. On admission, he was afebrile and he is pulse ox was initially in the order of 82-88%. He was placed on 2 L of oxygen by nasal cannula and subsequently was brought up to 4 L and then 6 L. His current pulse is up to 92%. His alcohol level was positive at 17. He drinks 12 pack beer on a daily basis. . Note that the patient's was also complaining of some numbness and weakness in his right side mainly in his right upper extremity. Initial CAT scan of the brain showed no acute intracranial abnormalities. Exact timing of the weakness was not clearly established. I think this was of an acute onset. Nevertheless, the the stroke team was not activated. Carotid Dopplers were done and no significant stenosis were identified. Echo was done and the patient is an ejection fraction of 55-60% and the patient is a moderate concentric LVH and RV was mild to moderately dilated. Rest of the blood work was all within normal limits. Serum bicarbs at 30 consistent with chronic hypercapnic respiratory failure and secondary metabolic alkalosis. EKG showed a sinus rhythm with an incomplete right bundle branch block and T-wave abnormalities. The patient had a chest x-ray that showed some cardiomegaly. No other acute abnormalities was noted. He is still complaining of some weakness in the fourth and the fasting in his right hand. Otherwise there is no significant right-sided weakness. No facial asymmetry. Mental status appropriate for now. His urine drug screen is positive for marijuana as expected and opiates. His LDL cholesterol is at 76. Rest of the blood work shows an AST of 73, ALT of 150, troponins are negative, and his sodium level is at 134. Coagulation profile is within normal limits. Based on previous records, the patient's chronic hypoxic and his baseline pulse ox is 88-89% on room air oxygen. On 06/19/2020 patient seen in follow-up in intensive care unit, he seen sitting up in the recliner, lethargic, but easily arousable to verbal stimulation, currently on 6 L of oxygen his pulse ox is 94-96%, FiO2 was dropped down to 4 L/m, afebrile, hemodynamically patient is stable, yesterday we discussed possibility of given patient some Lasix for lower extremity edema, and possibility of weaning him off the oxygen, however patient has declined the Lasix he states that the lower extremity edema chronic, is unchanged from his baseline. His chest x-ray did not show any acute pulmonary process. His had no fever or chills. He was seen by neurology, and there is a possibility that patient may have had acute ischemic CVA with mild monoparesis involving his right upper extremity. The weakness in his right hand is improving. His echocardiogram has been reviewed showing moderate LVH, EF of 55-60%, trace m itral regurg, mild to moderate enlargement of the right ventricle, trace tricuspid regurg, right-sided pressures of less than 35 mmHg. Patient is on aspirin, Plavix and Lipitor Objective - Vital Signs Vital signs: Vital Signs Temp 98.1 F 06/19/20 08:00 Pulse 76 06/19/20 08:18 Resp 16 06/19/20 08:00 BP 159/84 06/19/20 08:00 Pulse Ox 94 L 06/19/20 08:06 Intake & Output 06/18/20 06/19/20 06/19/20 18:59 06:59 18:59 Intake Total 500 400 Output Total 600 Balance -600 500 400 Weight 260 kg 261 kg Intake: Oral 500 400 Output: Urine 600 Other: Voiding Method Toilet Toilet Toilet Urinal Urinal Urinal # Voids 2 1 - Exam GENERAL EXAM: Lethargic, but arousable to verbal stimuli, morbidly obese white male, currently on 6 L of oxygen with a pulse ox of 94%. Sitting up in the recliner, snoring, comfortable in no apparent distress. HEAD: Normocephalic/atraumatic. EYES: Normal reaction of pupils, equal size. Conjunctiva pink, sclera white. NOSE: Clear with pink turbinates. THROAT: No erythema or exudates. NECK: No masses, no JVD, no thyroid enlargement, no adenopathy. CHEST: No chest wall deformity. Symmetrical expansion. LUNGS: Equal air entry with no crackles, wheeze, rhonchi or dullness. CVS: Regular rate and rhythm, normal S1 and S2, no gallops, no murmurs, no rubs ABDOMEN: Soft, nontender. No hepatosplenomegaly, normal bowel sounds, no guarding or rigidity. EXTREMITIES: No clubbing, nonpitting edema involving bilateral lower extremities no cyanosis, 2+ pulses and upper and lower extremities. MUSCULOSKELETAL: Muscle strength and tone normal. SPINE: No scoliosis or deformity SKIN: No rashes CENTRAL NERVOUS SYSTEM: Lethargic, but arousable, oriented 3 No focal deficits, tone is normal in all 4 extremities. - Labs CBC & Chem 7: 06/17/20 20:18 06/17/20 20:18 Labs: Abnormal Lab Results - Last 24 Hours (Table) 06/17/20 06/18/20 Range/Units 20:18 13:00 Hemoglobin A1c 6.6 H (4.0-6.0) % Urine Opiates Screen Detected H (NotDetected) U Marijuana (THC) Screen Detected H (NotDetected) Assessment and Plan Plan: Assessment: #1. Acute right-sided weakness, mild monoparesis involving right upper extremity, possibly related to acute ischemic CVA #2. Acute alcohol intoxication at the time of admission, and urine drug screen positive or marijuana and opiates, CT of the brain showed no acute findings, carotid Dopplers were negative, motor weakness has improved with some residual numbness in his fourth and fifth digits on the right hand, no facial asymmetry, no focal neurological deficit, neurology swallowing #3. Severe obstructive sleep apnea with an AHI of 50, non-, to BiPAP therapy #4. Chronic hypoxic respiratory failure #5. Obesity hypoventilation syndrome and suspected chronic hypercapnic respiratory failure with secondary metabolic alkalosis #6. Chronic alcoholism, patient drinks 12 pack beers on a daily basis #7. Chronic smoker of both tobacco and marijuana #8. Chronic lower extremity edema #9. Hypertension #10. Bipolar disease Plan: Patient does qualify for home oxygen for chronic hypoxic respiratory failure related to obesity hypoventilation syndrome, and possibility of underlying COPD is not entirely excluded. His right hand weakness has improved, no other focal neurological deficits, stable overnight, ataxia has improved, patient has been able to ambulate to the bathroom. Vital signs are stable. Patient will need follow-up with Dr. Zaragoza in the office, and he will be reevaluated for his need for CPAP/BiPAP therapy on an outpatient basis. I performed a history & physical examination of the patient and discussed their management with my nurse practitioner, Abbey Owen. I reviewed the nurse practitioner's note and agree with the documented findings and plan of care. Lung sounds are positive for diminished breath sounds. The findings and the impression was discussed with the patient. I attest to the documentation by the nurse practitioner. Time with Patient: Less than 30
--- NOTE | 2020-06-19 15:18 | P.DS ---
Providers Date of admission: 06/17/20 22:26 Expected date of discharge: 06/19/20 Attending physician: Loki Bishop Consults: 06/17/20 22:22 Consult Physician Routine Consulting Provider: Mejia Zaragoza Consult Reason/Comments: copd Do you want consulting provider notified?: Yes Consult Physician Routine Consulting Provider: Herbie Rosas Consult Reason/Comments: cva Do you want consulting provider notified?: Yes Primary care physician: Loki Bishop [facility] Course: Final Diagnoses: Acute right-sided weakness with altered mental status, etiology unclear, possible acute CVA / TIA, possibly related to acute hypoxic respiratory failure, alcohol abuse. Denies recreational drugs, positive for nicotine and marijuana use. Possible obesity hypoventilation syndrome. Unable to complete MRI secondary to body habitus/size Acute hypoxic respiratory failure Acute alcohol intoxication, resolved ROCHELLE, noncompliant with wearing his CPAP Anxiety Morbid obesity, BMI 69.8 Hospital course:This is a 49-year-old gentleman with past medical history of hypertension, ROCHELLE, hypertension, obesity, depression ongoing nicotine dependence, marijuana use, and multiple other medical issues presented to the ER with complaints of right-sided weakness, altered mental status, and shortness of breath. ER reported patient cyanotic on arrival. On admission, patient afebrile, normal WBC, tachypneic with respiratory rate in the mid 20s, maintaining O2 sats in the low 90s on 2 L nasal cannula. Currently on 4 L nasal cannula maintaining O2 sats between 82 and 88%. Patient reports he has a CPAP machine but not compliant with wearing it. Alcohol level 107- Reports he drinks a 12 pack of beer daily. Currently right-sided weakness has resolved with the exception of some numbness in his last 2 digits of his right hand. Hematology unremarkable, INR 1, sodium 134, potassium 4.2, carbon dioxide 30, BUN 12, creatinine 0.79, AST 73, ALT 150. Troponin negative 1. EKG reported normal sinus rhythm, incomplete right bundle branch block, T-wave abnormality. Denies chest pain, palpitations. Brain CT reported no acute intracranial hemorrhage or midline shift. Chest x-ray reported no acute cardiopulmonary process. Carotid Doppler reported hypoechoic area of the right and left neck measuring 1.5 x 1.3 x 0.8 cm and 1.4 x 1 x 0.9 cm, no significant stenosis. Echo suboptimal re ported normal LV function, EF 55-60%, moderate concentric ventricular hypertrophy, right ventricle mild to moderately enlarged. Evaluated by neurology and pulmonary. Neurology workup completed with the exception of MRI which patient unable to fit into machine. Placed on dual anticoagulation, statin. Significant clinical improvement cleared by all consults for discharge. Patient is being discharged home today in a stable condition with guarded prognosis. The impression and plan of care has been dictated as directed. : I performed a history and examination of this patient, discussed the same with the dictator. I agree with the dictator's note ,documented as a scribe. Any additional findings or plans will be noted.. Patient Condition at Discharge: Stable Plan - Discharge Summary New Discharge Prescriptions: New Aspirin EC [Ecotrin Low Dose] 81 mg PO DAILY #30 tablet. Atorvastatin [Lipitor] 80 mg PO HS #30 tab Famotidine [Pepcid] 20 mg PO BID #60 tab Clopidogrel [Plavix] 75 mg PO DAILY #30 tab Continue HYDROcodone/APAP 10-325MG [[place] 10-325] 1 tab PO QID Discharge Medication List HYDROcodone/APAP 10-325MG [[place] 10-325] 1 tab PO QID 01/02/18 [History] Aspirin EC [Ecotrin Low Dose] 81 mg PO DAILY #30 tablet. 06/19/20 [Rx] Atorvastatin [Lipitor] 80 mg PO HS #30 tab 06/19/20 [Rx] Clopidogrel [Plavix] 75 mg PO DAILY #30 tab 06/19/20 [Rx] Famotidine [Pepcid] 20 mg PO BID #60 tab 06/19/20 [Rx] Follow up Appointment(s)/Referral(s): Neal Mejia MD [REFERRING] - 1 Week Loki Bishop Jr, DO [Primary Care Provider] - 3 Days [facility],Equipment [NON-STAFF] - As Needed (Call [facility] when disch arging to have Oxygen concentrator and wheelchair delivered to home [phone]) [facility] Visiting Nurse, [NON-STAFF] - 1-2 Days Patient Instructions/Handouts: Transient Ischemic Attack (DC), How to Stop Smoking (DC) Activity/Diet/Wound Care/Special Instructions: Pending final DC recommendations and clearance from neurology . Dual antiplatelet medications 3-4 weeks been single antiplatelet agent with either aspirin 325 mg or Plavix 75 mg daily 4 L nasal cannula O2 as per case management Recommend patient use his CPAP No alcohol Discharge Disposition: HOME SELF-CARE
== END 2020-06-19 14:44 | disposition home or self-care (01) | DRG 64 ==
LOC: EC 20:01 → 3SCARD 22:26 → 2SICU 23:12
PROVIDERS: ADMIT Family Medicine; ATTEND Family Medicine
DX: I63.9 Cerebral infarction, unspecified (principal); J96.21 Acute and chronic respiratory failure with hypoxia; J96.22 Acute and chronic respiratory failure with hypercapnia; Z68.44 Body mass index [BMI] 60.0-69.9, adult; E66.2 Morbid (severe) obesity with alveolar hypoventilation; E87.3 Alkalosis; E78.5 Hyperlipidemia, unspecified; E86.0 Dehydration; F10.229 Alcohol dependence with intoxication, unspecified; Y90.5 Blood alcohol level of 100-119 mg/100 ml; M79.89 Other specified soft tissue disorders; F31.9 Bipolar disorder, unspecified; F17.210 Nicotine dependence, cigarettes, uncomplicated; F41.9 Anxiety disorder, unspecified; I11.9 Hypertensive heart disease without heart failure; I45.10 Unspecified right bundle-branch block; J44.9 Chronic obstructive pulmonary disease, unspecified; Z79.82 Long term (current) use of aspirin; Z91.19 Patient's noncompliance with other medical treatment and regimen; R47.81 Slurred speech; G83.21 Monoplegia of upper limb affecting right dominant side; Z88.0 Allergy status to penicillin; Z91.040 Latex allergy status; I73.9 Peripheral vascular disease, unspecified; Z79.891 Long term (current) use of opiate analgesic; Z99.89 Dependence on other enabling machines and devices; Z71.41 Alcohol abuse counseling and surveillance of alcoholic; R40.2362 Coma scale, best motor response, obeys commands, at arrival to emergency department; R40.2142 Coma scale, eyes open, spontaneous, at arrival to emergency department; R40.2252 Coma scale, best verbal response, oriented, at arrival to emergency department
CPT/HCPCS: 36415; 70450; 71046; 80053; 80061; 80306; 80320; 82550; 82553; 83036; 84484; 85025; 85610; 85730; 93005; 93306; 93880; 94640; 96361; 96374; 99291

== ENCOUNTER → 2024-02-21 | Outpatient (CLI) | payer MEDICARE, OTHER ==
[2024-02-21 14:31] VITALS: BP 142/86; PULSE 101; RESP 17; TEMP 98.4
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
== END ==
LOC: PNWHC3 13:37
PROVIDERS: ATTEND Specialist
DX: M54.42 Lumbago with sciatica, left side (principal); M54.41 Lumbago with sciatica, right side; G89.29 Other chronic pain; M51.36 Other intervertebral disc degeneration, lumbar region; F12.90 Cannabis use, unspecified, uncomplicated; F17.200 Nicotine dependence, unspecified, uncomplicated; Z91.040 Latex allergy status; Z88.0 Allergy status to penicillin
CPT/HCPCS: 99211